=== PATIENT | female | born 1995 | race African-American/Black ===

== ENCOUNTER 2020-11-11 14:39 | Emergency (ER) | payer OTHER | END 2020-11-11 16:00 | disposition home or self-care (01) | LOC: ERS 14:39 | DX: R20.2 Paresthesia of skin (principal) | CPT/HCPCS: 99283 ==

== ENCOUNTER 2020-11-13 20:36 | Emergency (ER) | payer OTHER | END 2020-11-14 00:30 | disposition home or self-care (01) | LOC: ERS 20:36 | DX: R20.2 Paresthesia of skin (principal); R53.1 Weakness; F31.9 Bipolar disorder, unspecified; F41.9 Anxiety disorder, unspecified; Z79.899 Other long term (current) drug therapy | CPT/HCPCS: 99283 ==

== ENCOUNTER 2020-11-20 13:50 | Outpatient (CLI) | payer OTHER ==
[2020-11-20] MEDS ORDERED: Magnevist 469MG/ML 20 ML VIAL ONE (14:25)
--- NOTE | 2020-11-20 15:13 | MRI ---
MRI CERVICAL SPINE WITHOUT CONTRAST: 11/20/20 HISTORY: Neck pain, paresthesia. FINDINGS: Straightening of the normal lordotic curvature is noted. The cervical vertebrae maintain height and a lignment and exhibit normal signal. Slight loss of disc space height at C4-5 is noted. No significant disc bulge or disc protrusion seen at C2-3 or C3-4. At C4-5, there is a posterior disc bulge flattening the thecal sac and effacing the anterior subarach noid space. This abuts the anterior cord. Foramina are patent. At C5-6, shows minimal disc bulge slightly effacing the anterior subarachnoid space. No disc protrusi on. No central canal or foraminal stenosis. C6-7 and C7-T1 levels are unremarkable. The cervical cord signal is normally preserved. IMPRESSION: Mild disc bulge at C4-5 flattens the thecal sac and effaces the anterior subarachnoid space. This abu ts but does not significantly compress the anterior cord. POS: OFF
--- NOTE | 2020-11-20 15:55 | MRI ---
Exam: Brain MRI with and without contrast HISTORY: Skin paresthesia. [place] her head to her entire body sensation. [id number] sensatio n. COMPARISON: None FINDINGS: Gradient echo sequence: No hemorrhage Calvarium: Appropriate T1 marrow signal intensity Midline brain parenchyma: Unremarkable Cerebrum:No parenchymal mass, mass effect or midline shift. Brain volume is age-appropriate. Cortical jordan-white matter differentiation is preserved. No significant T2 or FLAIR white matter hyperintensities. Ventricles: No evidence of hydrocephalus. Sinuses and mastoid air cells: Adequate aeration Diffusion: Central arterial flow is maintained. Absent restricted diffusion. Postcontrast images: No pathologic enhancement of the brain parenchyma. IMPRESSION: 1. No pathologic enhancement brain parenchyma 2. Absent restricted diffusion. No acute infarct 3. No abnormal T2 or FLAIR white matter hyperintensities.
== END 2020-11-20 13:51 | disposition home or self-care (01) ==
LOC: BICMRI 13:50
PROVIDERS: ATTEND Psychiatry & Neurology Neurology
DX: R20.2 Paresthesia of skin (principal); M50.821 Other cervical disc disorders at C4-C5 level
CPT/HCPCS: 70553; 72141; A9579